=== PATIENT | female | born 1960 | race Caucasian/White ===

== ENCOUNTER → 2019-11-29 | Outpatient (CLI) | payer BC | LOC: M LABSMTC 10:02 | PROVIDERS: ATTEND Ophthalmology | DX: Z11.59 Encounter for screening for other viral diseases (principal); Z03.89 Encounter for observation for other suspected diseases and conditions ruled out | CPT/HCPCS: C9803; U0003 ==

== ENCOUNTER → 2021-08-11 | Outpatient (CLI) | payer BC, SELFPAY ==
[~2021-08-11] MED LIST: LEVO112T2 PO; LISI20TA37 PO; OMEP-173 PO; POTA10PO PO
== END ==
LOC: M LABSMTC 10:56
PROVIDERS: ATTEND Anesthesiology
DX: Z01.812 Encounter for preprocedural laboratory examination (principal); Z20.822 Contact with and (suspected) exposure to COVID-19

== ENCOUNTER 2021-08-16 08:52 | Day surgery (SDC) | payer BC ==
[~2021-08-16] VITALS: Ht 157.5 cm; Wt 106.3 kg
[~2021-08-16 08:52] MED LIST changes: +D 1010002 PO; +LIDOCAINE 1% SDV 5ML VIAL As Ordered ONE; +LR 1,000 ML IV SCH; +MIDAZOLAM INJ 2MG/2ML VIAL (J2250 PER 1MG) As Ordered ONE
[2021-08-16] MEDS: FLURBIPROFEN 0.03% OPHTH SOLN 2.5 ML OS SCH ×2 (09:34→09:53)
[2021-08-16] MEDS: PHENYLEPHRINE 2.5% OPHTH SOL 2ML OS SCH ×2 (09:34→09:53)
[2021-08-16] MEDS: CYCLOPENTOLATE 1% OPHTH SOLN 2 ML BTL OS SCH ×2 (09:34→09:53)
[2021-08-16] MEDS: TETRACAINE 0.5% OPHTH SOLN 4ML OS SCH (09:34)
[2021-08-16 11:30] VITALS: BP 140/80
== END 2021-08-16 11:43 | disposition home or self-care (01) ==
LOC: M SDC 08:52
PROVIDERS: ATTEND Ophthalmology
DX: H25.12 Age-related nuclear cataract, left eye (principal); I10 Essential (primary) hypertension; E03.9 Hypothyroidism, unspecified; K21.9 Gastro-esophageal reflux disease without esophagitis; Z79.899 Other long term (current) drug therapy
CPT/HCPCS: 66984; J2250

== ENCOUNTER 2024-08-05 11:38 | Emergency (ER) | payer MEDICARE, BC ==
[~2024-08-05] VITALS: Ht 157.5 cm; Wt 74.9 kg
[~2024-08-05 11:38] MED LIST changes: -LIDOCAINE 1% SDV 5ML VIAL As Ordered ONE; -LR 1,000 ML IV SCH; -MIDAZOLAM INJ 2MG/2ML VIAL (J2250 PER 1MG) As Ordered ONE
[2024-08-05 17:17] LABS: BASO # 0.1 10^3/uL (0.0-0.2); BASO % 0.7 % (0.0-1.0); EOS # 0.4 10^3/uL (0.0-0.5); EOS % 4.3 % (0.0-3.0); HEMATOCRIT 37.1 % (36.0-47.0); HEMOGLOBIN 11.8 g/dl (12.0-15.5); LYMPH # 1.2 10^3/uL (1.5-5.0); LYMPH % 14.5 % (24.0-44.0); MEAN CORPUSCULAR HEMOGLOBIN 27.1 pg (27.0-33.0); MEAN CORPUSCULAR HGB CONC 31.8 g/dl (32.0-36.5); MEAN CORPUSCULAR VOLUME 85.1 fl (80.0-96.0); MONO # 0.8 10^3/uL (0.0-0.8); MONO % 9.7 % (2.0-8.0); NEUTROPHILS % 70.4 % (36.0-66.0); PLATELET COUNT, AUTOMATED 302 10^3/uL (150-450); RED BLOOD COUNT 4.36 10^6/uL (4.00-5.40); WHITE BLOOD COUNT 8.6 10^3/uL (4.0-10.0)
[2024-08-05 17:47] LABS: ALBUMIN 3.6 G/DL (3.2-5.2); BILIRUBIN,DIRECT 0.2 MG/DL (<0.4); BILIRUBIN,TOTAL 0.9 MG/DL (0.3-1.2); CALCIUM LEVEL 9.2 MG/DL (8.3-10.6); CREATININE FOR GFR 2.15 MG/DL (0.55-1.30); GLOMERULAR FILTRATION RATE 24.5 (>45); TOTAL PROTEIN 7.8 G/DL (5.7-8.2)
[2024-08-05 17:55] VITALS: TEMP 99
[2024-08-05] MEDS: PANTOPRAZOLE 40MG VIAL IV ONE (17:58)
[2024-08-05] MEDS: NS (Normal Saline) 0.9% 1,000 ML IV ONE (17:58)
[2024-08-05] MEDS: ONDANSETRON 4MG 2ML VIAL IV ONE (17:58)
[2024-08-05] MEDS ORDERED: ONDA-282 PO (20:11)
[2024-08-05 20:29] VITALS: BP 124/66; O2SAT 95
== END 2024-08-05 20:34 | disposition home or self-care (01) ==
LOC: M ED 11:38
DX: R11.2 Nausea with vomiting, unspecified (principal); R19.7 Diarrhea, unspecified; I10 Essential (primary) hypertension; E03.9 Hypothyroidism, unspecified; Z79.899 Other long term (current) drug therapy
CPT/HCPCS: 80047; 80048; 80076; 85025; 87486; 87581; 87633; 87798; 96374; 96375; 99283; J2405; J2470